=== PATIENT | male | born 1960 | race Two or more races ===

== ENCOUNTER 2021-02-07 10:58 | Outpatient (CLI) | payer OTHER | END 2021-02-07 11:15 | disposition home or self-care (01) | LOC: SONOGRAMA 10:58 | DX: R19.09 Other intra-abdominal and pelvic swelling, mass and lump (principal); N28.89 Other specified disorders of kidney and ureter; R10.31 Right lower quadrant pain ==

== ENCOUNTER 2023-08-29 11:47 | Day surgery (SDC) | payer OTHER ==
[~2023-08-29 11:47] MED LIST: AMBIEN10 MG PO; ATACAND32 MG PO; ROSUVASTATIN CA40 MG PO; ZEGERID 40 MG1 EACH PO
[2023-08-29] MEDS ORDERED: CIPROFLOXACIN IN 5 % DEXTROSE 400 MG/200 ML PIGGYBAG IV ONE ×2 (12:39→14:45)
[2023-08-29] MEDS ORDERED: KETOROLAC TROMETHAMINE 30 MG VIAL ONE (15:18)
[2023-08-29] MEDS ORDERED: BUPIVACAINE HCL/PF 0.5% 30ML ML ONE (15:19)
[2023-08-29] MEDS ORDERED: TRAMADOL HCL50 MG PO (15:57)
[2023-08-29] MEDS ORDERED: MIRALAX17 GM PO (15:57)
[2023-08-29] MEDS ORDERED: TYLENOL ARTHRI650 MG PO (15:57)
[2023-08-29] MEDS ORDERED: KETO10TA2 PO (15:57)
[2023-08-29] MEDS ORDERED: BUPIVACAINE HCL 250MG/50ML VIAL IJ ONE (16:15)
[2023-08-29] MEDS ORDERED: KETOROLAC TROMETHAMINE 30 MG VIAL IV ONE (16:15)
== END 2023-08-29 19:50 | disposition home or self-care (01) ==
LOC: CIR.AMB 11:47
PROVIDERS: ATTEND Surgery
DX: K40.90 Unilateral inguinal hernia, without obstruction or gangrene, not specified as recurrent (principal); K42.0 Umbilical hernia with obstruction, without gangrene; I11.9 Hypertensive heart disease without heart failure; K21.9 Gastro-esophageal reflux disease without esophagitis; Z88.0 Allergy status to penicillin
CPT/HCPCS: 49650; 49592; C1781